=== PATIENT | female | born 1975 | race Caucasian/White ===

== ENCOUNTER 2017-09-14 03:31 | Inpatient (IN) | payer OTHER ==
[~2017-09-14] VITALS: Ht 152.4 cm; Wt 88.2 kg
[2017-09-14] VITALS (8 sets, daily range): BP systolic 104–131; BP diastolic 54–90; PULSE 67–100; RESP 16–24; TEMP 97.7–99; O2SAT 95–100
[2017-09-14] MEDS ORDERED: SODIUM CHLORIDE 0.9% FLUSH 10 ML FLUSH IVF PRN (04:00)
[2017-09-14] MEDS ORDERED: HYDROmorphone HCL PF 0.5 MG/0.5 ML SYRINGE IV PUSH ONE ×2 (04:00→05:30)
[2017-09-14] MEDS ORDERED: DEXAMETHASONE SOD PHOS 4 MG/ML VIAL IV PUSH ONE (04:00)
[2017-09-14] MEDS ORDERED: CLINDAMYCIN INJ 900 MG in SODIUM CHLORIDE 0.9% INJ 100 ML IV ONE (04:00)
[2017-09-14] MEDS ORDERED: ONDANSETRON HCL 4 MG/2 ML VIAL IV PUSH ONE (04:00)
--- NOTE | 2017-09-14 04:04 | PD ---
HPI Chief Complaint: Oral / Dental Pain or Problem Time Seen by Provider: 03:45 Travel History International Travel<30 days: No Contact w/Intl Traveler<30days: No Traveled to known affect area: No History of Present Illness HPI Patient is a 42-year-old female presenting to the emergency department for evaluation of facial swelling and dental pain. Patient states the pain and swelling started Monday morning getting progressively more painful and swollen. Patient reports pain is a 9 out of 10, she took oxycodone which she has prescribed to her for chronic back pain and this did not relieve her symptoms. She denies any fever, chills, nausea, vomiting, headache. Patient states the pain is in her left lower jaw and radiates to her left neck and her neck feels more swollen now. She denies any dysphagia or shortness of breath. PFSH Past Medical History Diabetes: Yes Patient Takes Glucophage: Yes Diminished Hearing: No Immunizations Current: Yes ?: Not Past Surgical History Other Surgery: Yes (CYST REMOVED RIGHT NECK, SKIN CA REMOVED) Social History Alcohol Use: No Tobacco Use: Yes (-11/28 PPD) Substance Use: No Allergies-Medications (Allergen,Severity, Reaction): Coded Allergies: diphenhydramine (Verified Allergy, Mild, Swelling, 09/14/17) morphine (Verified Allergy, Mild, Itching, 09/14/17) Reported Meds & Prescriptions Reported Meds & Active Scripts Active Reported Hydrochlorothiazide 12.5 Mg Cap 12.5 Mg PO DAILY Gabapentin 800 Mg Tab 800 Mg PO TID Review of Systems Except as stated in HPI: all other systems reviewed are Neg HENT: Positive: Neck Pain, Masses, Dental Difficulties Respiratory: No: Shortness of Breath Physical Exam Narrative GENERAL: Well-developed, well-nourished, alert female. Appears uncomfortable, in no acute distress. SKIN: Warm and dry. Golf ball size area of edema to the left lower jaw extending to the submandibular space on the left side, the left cheek is mildly edematous. Mild erythema noted. MOUTH: Mucous membranes moist, no lesions, tongue and gums appear normal. No obvious abscess noted. HEAD: Normocephalic. EYES: No scleral icterus. No injection or drainage. NECK: Supple, trachea midline. No JVD or lymphadenopathy. CARDIOVASCULAR: Regular rate and rhythm without murmurs, gallops, or rubs. RESPIRATORY: Breath sounds equal bilaterally. No accessory muscle use. GASTROINTESTINAL: Abdomen soft, non-tender, nondistended. MUSCULOSKELETAL: No cyanosis, or edema. BACK: Nontender without obvious deformity. No CVA tenderness. Data Data Last Documented VS Vital Signs Date Time Temp Pulse Resp B/P (MAP) Pulse Ox O2 Delivery O2 Flow Rate FiO2 09/14/17 03:33 97.7 100 16 121/90 (100) 100 Room Air Orders Orders Complete Blood Count With Diff (09/14/17 03:48) Iv Access Insert/Monitor (09/14/17 03:48) Dexamethasone Inj (Decadron Inj) (09/14/17 04:00) Clindamycin Inj (Cleocin Inj) (09/14/17 04:00) Sodium Chloride 0.9% Flush (Ns Flush) (09/14/17 04:00) Ed Urine Pregnancytest Poc (09/14/17 03:48) Basic Metabolic Panel (Bmp) (09/14/17 03:48) Hydromorphone Pf Inj (Dilaudid Pf Inj) (09/14/17 04:00) Ondansetron Inj (Zofran Inj) (09/14/17 04:00) Ct Soft Tiss Neck W Iv Cont (09/14/17 04:01) Iohexol 350 Inj (Omnipaque 350 Inj) (09/14/17 05:10) Hydromorphone Pf Inj (Dilaudid Pf Inj) (09/14/17 05:30) Admit Order (Ed Use Only) (09/14/17 05:54) Vital Signs (Adult) Q4H (09/14/17 05:54) Diet 1999 Ada Cons Carb (09/14/17 Breakfast) Activity Oob With Assistance (09/14/17 05:54) Labs Laboratory Tests Test 09/14/17 03:55 White Blood Count 21.8 TH/MM3 Red Blood Count 5.38 MIL/MM3 Hemoglobin 16.1 GM/DL Hematocrit 46.0 % Mean Corpuscular Volume 85.4 FL Mean Corpuscular Hemoglobin 29.9 PG Mean Corpuscular Hemoglobin Concent 35.0 % Red Cell Distribution Width 13.9 % Platelet Count 258 TH/MM3 Mean Platelet Volume 9.3 FL Neutrophils (%) (Auto) 79.3 % Lymphocytes (%) (Auto) 15.0 % Monocytes (%) (Auto) 4.4 % Eosinophils (%) (Auto) 0.6 % Basophils (%) (Auto) 0.7 % Neutrophils # (Auto) 17.3 TH/MM3 Lymphocytes # (Auto) 3.3 TH/MM3 Monocytes # (Auto) 1.0 TH/MM3 Eosinophils # (Auto) 0.1 TH/MM3 Basophils # (Auto) 0.2 TH/MM3 CBC Comment DIFF FINAL Differential Comment Blood Urea Nitrogen 15 MG/DL Creatinine 0.66 MG/DL Random Glucose 220 MG/DL Calcium Level 8.7 MG/DL Sodium Level 135 MEQ/L Potassium Level 4.0 MEQ/L Chloride Level 104 MEQ/L Carbon Dioxide Level 23.4 MEQ/L Anion Gap 8 MEQ/L Estimat Glomerular Filtration Rate 98 ML/MIN MDM Medical Decision Making Medical Screen Exam Complete: Yes Emergency Medical Condition: Yes Interpretation(s) Last Impressions Neck CT 09/14/17 0401 Signed Impressions: Service Date/Time: , September 14, 2017 04:57 - CONCLUSION: 1. Cellulitis without abscess involving the buccal surface of the left mandible Eduin Cabrera MD Laboratory Tests Test 09/14/17 03:55 White Blood Count 21.8 TH/MM3 Red Blood Count 5.38 MIL/MM3 Hemoglobin 16.1 GM/DL Hematocrit 46.0 % Mean Corpuscular Volume 85.4 FL Mean Corpuscular Hemoglobin 29.9 PG Mean Corpuscular Hemoglobin Concent 35.0 % Red Cell Distribution Width 13.9 % Platelet Count 258 TH/MM3 Mean Platelet Volume 9.3 FL Neutrophils (%) (Auto) 79.3 % Lymphocytes (%) (Auto) 15.0 % Monocytes (%) (Auto) 4.4 % Eosinophils (%) (Auto) 0.6 % Basophils (%) (Auto) 0.7 % Neutrophils # (Auto) 17.3 TH/MM3 Lymphocytes # (Auto) 3.3 TH/MM3 Monocytes # (Auto) 1.0 TH/MM3 Eosinophils # (Auto) 0.1 TH/MM3 Basophils # (Auto) 0.2 TH/MM3 CBC Comment DIFF FINAL Differential Comment Blood Urea Nitrogen 15 MG/DL Creatinine 0.66 MG/DL Random Glucose 220 MG/DL Calcium Level 8.7 MG/DL Sodium Level 135 MEQ/L Potassium Level 4.0 MEQ/L Chloride Level 104 MEQ/L Carbon Dioxide Level 23.4 MEQ/L Anion Gap 8 MEQ/L Estimat Glomerular Filtration Rate 98 ML/MIN Vital Signs Date Time Temp Pulse Resp B/P (MAP) Pulse Ox O2 Delivery O2 Flow Rate FiO2 09/14/17 03:33 97.7 100 16 121/90 (100) 100 Room Air Differential Diagnosis Abscess versus cellulitis versus osteomyelitis versus other Narrative Course Patient presented to the ER for evaluation of facial swelling. Patient's vital signs are stable, labs and imaging ordered and pending. Pain medication ordered as well as IV antibiotics and dexamethasone. IV access established. CBC with a white count of 21.8 with left shift. Chemistry is unremarkable. CT of the neck was read by the radiologist shows cellulitis without abscess involving the buccal surface of the left mandible. Findings and patient presentation discussed with my attending physician. Patient will be admitted for IV antibiotic therapy with the diagnosis of cellulitis, patient meets sepsis criteria. [facility] paged for admission. Discussed with Dr. Galvez, admits orders placed. Additionally lab and imaging findings were discussed with patient. Sepsis Criteria SIRS Criteria (2 or more): Heart rate over 90, WBC > 69411, < 4000 or > 10% bands Sepsis Criteria (SIRS+source): Infect source susp/known Diagnosis Primary Impression: Cellulitis of cheek Admitting Information Admitting Physician Requests: Admit Condition: Stable Tianna Peterson Sep 14, 2017 04:04
[2017-09-14 04:08] LABS: AUTOMATED NEUTROPHIL # 17.3 TH/MM3 (1.8-7.7); BASOPHIL # 0.2 TH/MM3 (0-0.2); BASOPHIL % 0.7 % (0.0-2.0); EOSINOPHIL # 0.1 TH/MM3 (0-0.4); EOSINOPHIL % 0.6 % (0.0-4.0); HEMO FLAGS DIFF FINAL; LYMPHOCYTE # 3.3 TH/MM3 (1.0-4.8); MEAN CELL VOLUME 85.4 FL (80.0-100.0); MEAN CORPUSCULAR HEMOGLOBIN 29.9 PG (27.0-34.0); MONO % 4.4 % (0.0-8.0); NEUT % 79.3 % (16.0-70.0); PLATELET COUNT 258 TH/MM3 (150-450); RED BLOOD COUNT 5.38 MIL/MM3 (4.00-5.30); RED CELL DISTRIBUTION WIDTH 13.9 % (11.6-17.2); WHITE BLOOD COUNT 21.8 TH/MM3 (4.0-11.0)
[2017-09-14] MEDS ORDERED: GABA800T PO (04:08)
[2017-09-14] MEDS ORDERED: LISI2.5T3 PO (04:08)
[2017-09-14] MEDS ORDERED: METF1000 PO (04:08)
[2017-09-14] MEDS ORDERED: LANTUS2P SQ (04:08)
[2017-09-14] MEDS ORDERED: HYDR12.57 PO (04:08)
[2017-09-14] MEDS ORDERED: SIMV20TA PO (04:08)
[2017-09-14 04:39] LABS: BICARBONATE 23.4 MEQ/L (21.0-32.0)
[2017-09-14] MEDS ORDERED: IOHEXOL 350 MG/ML 10 ML VIAL (for RAD DIAG) IVCONTRAST ONE (05:10)
--- NOTE | 2017-09-14 05:22 | RADRPT ---
EXAM DATE/TIME: 09/14/2017 04:57 [facility] COMPARISON: No previous studies available for comparison. INDICATIONS : Left side facial swelling. Possible dental abscess. IV CONTRAST: 80 cc Omnipaque 350 (iohexol) IV RADIATION DOSE: 22.15 CTDIvol (mGy) MEDICAL HISTORY : None SURGICAL HISTORY : None. ENCOUNTER: Initial ACUITY: 2 days PAIN SCALE: 10/10 LOCATION: Left facial TECHNIQUE: Volumetric scanning of the neck was performed. Using automated exposure control and adjustment of th e mA and/or kV according to patient size, radiation dose was kept as low as reasonably achievable to obtain optimal diagnostic quality images. DICOM format image data is available electronically for r eview and comparison. FINDINGS: Examination of the skull base demonstrates no evidence of deep infiltrating mucosal lesion. The oroph arynx, hypopharynx, glottic and subglottic airway demonstrate no abnormality. There is extensive soft tissue swelling along the buccal surface of the mandible without evidence of abscess. There is no monique ny destruction or periosteal reaction to suggest osteomyelitis. There is reactive adenopathy involvin g the submandibular nodes bilaterally. The thyroid gland demonstrates no abnormality. The lung apices demonstrate no abnormality. There is lucency surrounding the molar is on the left characteristic of dental caries CONCLUSION: 1. Cellulitis without abscess involving the buccal surface of the left mandible Eduin Cabrera MD on September 14, 2017 at 5:17 Board Certified Radiologist. This report was verified electronically.
[2017-09-14] MEDS ORDERED: NALOXONE HCL 0.4 MG/ML AMP IV PUSH PRN (06:00)
[2017-09-14] MEDS ORDERED: SODIUM CHLORIDE 0.9% FLUSH 10 ML FLUSH IV FLUSH PRN (06:00)
[2017-09-14] MEDS ORDERED: IBUP800T23 PO (09:56)
[2017-09-14] MEDS ORDERED: DEXTROSE 50% IN WATER 50 ML VIAL(D50) IV PUSH PRN (10:00)
[2017-09-14] MEDS ORDERED: DEXAMETHASONE SOD PHOS 4 MG/ML VIAL IV PUSH SCH (10:00)
[2017-09-14] MEDS ORDERED: GLUCAGON 1 MG/ML VIAL OTHER PRN (10:00)
--- NOTE | 2017-09-14 10:37 | HHI.HP ---
HPI Service [facility] Primary Care Physician [facility] Admission Diagnosis facial cellulitis Diagnoses: Chief Complaint: Facial pain and swelling Travel History International Travel<30 Days: No Contact w/Intl Traveler <30 Da: No Traveled to Known Affected Are: No Sepsis Criteria SIRS Criteria (2 or more): Heart rate over 90, RR > 20 or PaCO2 < 32, WBC > 42930, < 4000 or > 10% bands Sepsis Criteria (SIRS+source): Infect source susp/known Criteria Outcome: Meets sepsis criteria History of Present Illness Written by Sunny Paris, acting as scribe for Dr. Davenport on 09/14/17 at 10:37. 42-year-old female with past medical history of HTN, HLD, DM who presented for left facial pain and swelling. Patient states yesterday morning she had pain and swelling below her left jaw. She describes the pain as constant, throbbing secondary to all the swelling. She denies any fever, chills, nausea, vomiting, lightheadedness, dizziness, dysuria, constipation. She doesn't feel she is having any tooth pain. She received IV antibiotics and steroids in the ED, denies much improvement at this time. Review of Systems Except as stated in HPI: all other systems reviewed are Neg Past Family Social History Past Medical History Hypertension Hyperlipidemia Diabetes mellitus with neuropathy Past Surgical History The meniscus repair bilateral Mohs surgery for skin cancer Right brachial cleft cyst removal Reported Medications Reported Meds & Active Scripts Active Reported Ibuprofen 800 Mg Tab 800 Mg PO TID Lantus Inj (Insulin Glargine) 1,000 Unit/10 Ml Vial 10 Units SQ AC BREAKFAST Metformin (Metformin HCl) 1,000 Mg Tab 1,000 Mg PO BIDPC Simvastatin 20 Mg Tab 20 Mg PO HS Lisinopril 2.5 Mg Tab 10 Mg PO DAILY Hydrochlorothiazide 12.5 Mg Cap 12.5 Mg PO DAILY Gabapentin 800 Mg Tab 800 Mg PO TID Allergies: Coded Allergies: diphenhydramine (Verified Allergy, Mild, Swelling, 09/14/17) morphine (Verified Allergy, Mild, Itching, 09/14/17) Active Ordered Medications Current Medications Medications (Trade) Dose Ordered Sig/Landry Route Start Time Stop Time Status Last Admin (NS Flush) 2 ml UNSCH PRN IV FLUSH 09/14/17 06:00 (NS Flush) 2 ml BID IV FLUSH 09/14/17 09:00 09/14/17 10:43 (Narcan Inj) 0.4 mg UNSCH PRN IV PUSH 09/14/17 06:00 Clindamycin Phosphate 900 mg/ Sodium Chloride 106 ml @ 212 mls/hr Q6H IV 09/14/17 10:00 09/14/17 10:42 (Lactinex) 1 tab TID PO 09/14/17 09:00 09/14/17 10:42 (D50w (Vial) Inj) 50 ml UNSCH PRN IV PUSH 09/14/17 10:00 (Glucagon Inj) 1 mg UNSCH PRN OTHER 09/14/17 10:00 (NovoLOG SUPPLEMENTAL SCALE) 1 ACHS SLIDING SCALE SQ 09/14/17 12:00 (Neurontin) 800 mg TID PO 09/14/17 13:00 UNV (Lantus Inj) 10 units AC BREAKFAST SQ 09/14/17 11:00 UNV Non-Formulary Medication 10 mg DAILY PO 09/14/17 11:00 UNV Non-Formulary Medication 20 mg HS PO 09/14/17 21:00 UNV (Toradol Inj) 15 mg Q6HR IV PUSH 09/14/17 12:00 UNV (Protonix) 40 mg DAILY PO 09/14/17 11:00 UNV Family History Father at 51 of colon cancer, had diabetes Mother has diabetes and high blood pressure Social History Smokes 1.5 packs per day since age 16 Denies any alcohol use Marijuana use Physical Exam Vital Signs Vital Signs Date Time Temp Pulse Resp B/P (MAP) Pulse Ox O2 Delivery O2 Flow Rate FiO2 09/14/17 09:25 98.4 79 22 131/69 (89) 95 09/14/17 09:14 09/14/17 06:12 75 16 109/65 (80) 95 Room Air 09/14/17 03:33 97.7 100 16 121/90 (100) 100 Room Air Physical Exam GENERAL: Well-developed well-nourished. In no acute distress. SKIN: Warm and dry. Jaw infection as below. HEENT: Normocephalic. Pupils equal and round. Left lower jaw with swelling, induration, redness, tenderness to palpation. Poor dentition. CARDIOVASCULAR: Regular rate and rhythm. No murmur appreciated. RESPIRATORY: No accessory muscle use. Clear to auscultation. Breath sounds equal bilaterally. GASTROINTESTINAL: Abdomen soft, non-tender, nondistended. Bowel sounds x4. MUSCULOSKELETAL: No obvious deformities. No clubbing or cyanosis. No edema. NEUROLOGICAL: Awake and alert. No focal neurological deficits. Moves upper and lower extremities spontaneously. Normal speech. PSYCHIATRIC: Appropriate mood and affect; insight and judgment normal. Laboratory Laboratory Tests Test 09/14/17 03:55 White Blood Count 21.8 Red Blood Count 5.38 Hemoglobin 16.1 Hematocrit 46.0 Mean Corpuscular Volume 85.4 Mean Corpuscular Hemoglobin 29.9 Mean Corpuscular Hemoglobin Concent 35.0 Red Cell Distribution Width 13.9 Platelet Count 258 Mean Platelet Volume 9.3 Neutrophils (%) (Auto) 79.3 Lymphocytes (%) (Auto) 15.0 Monocytes (%) (Auto) 4.4 Eosinophils (%) (Auto) 0.6 Basophils (%) (Auto) 0.7 Neutrophils # (Auto) 17.3 Lymphocytes # (Auto) 3.3 Monocytes # (Auto) 1.0 Eosinophils # (Auto) 0.1 Basophils # (Auto) 0.2 CBC Comment DIFF FINAL Differential Comment Blood Urea Nitrogen 15 Creatinine 0.66 Random Glucose 220 Calcium Level 8.7 Sodium Level 135 Potassium Level 4.0 Chloride Level 104 Carbon Dioxide Level 23.4 Anion Gap 8 Estimat Glomerular Filtration Rate 98 Result Diagram: 09/14/17 0355 09/14/17 0355 Imaging Last Impressions Neck CT 09/14/17 040 Signed Impressions: Service Date/Time: August 04:57 - CONCLUSION: 1. Cellulitis without abscess involving the buccal surface of the left mandible MD Henrique Luis VTE Risk Assessment Henrique VTE Risk Assessment: No/Low Risk (score <= 1) Caprini Risk Assessment Model Point Value = 1 Point Value = 2 Point Value = 3 Point Value = 5 Age 41-60 Minor surgery BMI > 25 kg/m2 Swollen legs Varicose veins or History of unexplained or recurrent spontaneous Oral contraceptives or hormone replacement Sepsis (< 1 month) Serious lung disease, including pneumonia (< 1 month) Abnormal pulmonary function Acute myocardial infarction Congestive heart failure (< 1 month) History of inflammatory bowel disease Medical patient at bed rest Age 61-74 Arthroscopic surgery Major open surgery (> 45 min) Laparoscopic surgery (> 45 min) Malignancy Confined to bed (> 72 hours) Immobilizing plaster cast Central venous access Age >= 75 History of VTE Family history of VTE Factor V Leiden Prothrombin [id number] Lupus anticoagulant Anticardiolipin antibodies Elevated serum homocysteine Heparin-induced thrombocytopenia Other congenital or acquired thrombophilia Stroke (< 1 month) Elective arthroplasty Hip, pelvis, or leg fracture Acute spinal cord injury (< 1 month) Prophylaxis Regimen Total Risk Factor Score Risk Level Prophylaxis Regimen 0-1 Low Early ambulation 2 Moderate Order ONE of the following: *Sequential Compression Device (SCD) *Heparin 5000 units SQ BID 3-4 Higher Order ONE of the following medications: *Heparin 5000 units SQ TID *Enoxaparin/Lovenox 40 mg SQ daily (WT < 150 kg, CrCl > 30 mL/min) *Enoxaparin/Lovenox 30 mg SQ daily (WT < 150 kg, CrCl > 10-29 mL/min) *Enoxaparin/Lovenox 30 mg SQ BID (WT < 150 kg, CrCl > 30 mL/min) AND/OR *Sequential Compression Device (SCD) 5 or more Highest Order ONE of the following medications: *Heparin 5000 units SQ TID (Preferred with Epidurals) *Enoxaparin/Lovenox 40 mg SQ daily (WT < 150 kg, CrCl > 30 mL/min) *Enoxaparin/Lovenox 30 mg SQ daily (WT < 150 kg, CrCl > 10-29 mL/min) *Enoxaparin/Lovenox 30 mg SQ BID (WT < 150 kg, CrCl > 30 mL/min) AND *Sequential Compression Device (SCD) Assessment and Plan Assessment and Plan 42-year-old female with past medical history of HTN, HLD, DM who presented for left facial pain and swelling Left facial cellulitis with sepsis: WBC 21.8, tachycardia, tachypnea. Personally interviewed neck CT which shows cellulitis without abscess along the buccal surface of the left mandible. -Continue IV antibiotics with clindamycin. Lactinex with clindamycin. -Check lactic acid and blood cultures -Received Decadron in the ED. Continue on IV Toradol for pain and swelling with PPI -IVF Diabetes mellitus: With hyperglycemia secondary to steroids and infection. -Continue home Lantus -Hold home metformin -Monitor Accu-Cheks and cover with sliding scale if needed -Continue gabapentin for neuropathy Hypertension: Continue home lisinopril. Hold home HCTZ for now. Monitor. Hyperlipidemia: Chronic, stable. Continue home statin. DVT prophylaxis: SCDs Discussed Condition With Patient Attending Statement This note was transcribed by rachel Paris. I, Dr. Freddy Davenport personally performed the history, physical exam, and medical decision making; and confirmed the accuracy of the information in the transcribed note. Authenticated by Dr. Freddy Davenport on 09/14/17 at 15:33. Sunyn Paris Sep 14, 2017 10:37 Freddy Davenport MD Sep 14, 2017 15:33
[2017-09-14] MEDS: LACTOBACILLUS ACIDOPHILUS TAB PO SCH ×3 (10:42→17:48)
[2017-09-14] MEDS: CLINDAMYCIN INJ 900 MG in SODIUM CHLORIDE 0.9% INJ 100 ML IV SCH ×3 (10:42→21:30)
[2017-09-14] MEDS: SODIUM CHLORIDE 0.9% FLUSH 10 ML FLUSH IV FLUSH SCH ×2 (10:43→21:30)
[2017-09-14] MEDS ORDERED: INSULIN DETEMIR 100 UNITS/ML VIAL SQ SCH (12:00)
[2017-09-14] MEDS: LISINOPRIL 10 MG TAB PO SCH (12:00)
[2017-09-14] MEDS: KETOROLAC TROMETHAMINE 30 MG/ML (IVP) VIAL IV PUSH SCH ×3 (13:06→23:49)
[2017-09-14] MEDS: GABAPENTIN 400 MG CAP PO SCH ×2 (13:06→17:48)
[2017-09-14] MEDS: SODIUM CHLOR 0.9% 1000 ML INJ 1,000 ML IV SCH ×2 (13:07→21:30)
[2017-09-14] MEDS: INSULIN ASPART SUPPLEMENTAL SCALE SQ SCH ×3 (13:08→21:30)
[2017-09-14] MEDS: PANTOPRAZOLE SOD 40 MG DELAYED RELEASE TAB PO SCH (13:09)
[2017-09-14 17:04] LABS: HEMOGLOBIN A1a 1.1 %; HEMOGLOBIN A1b 2.9 %; HEMOGLOBIN Ao 77.4 %; HEMOGLOBIN LA1C 3.9 %; HEMOGLOBIN P3 4.9 %
[2017-09-14] MEDS ORDERED: PRAVASTATIN SOD 40 MG TAB PO SCH (21:00)
[2017-09-14] MEDS: INSULIN DETEMIR 100 UNITS/ML VIAL SQ SCH (21:29)
[2017-09-15] VITALS: BP 101/63; PULSE 63; RESP 16; TEMP 97.9; O2SAT 98
[2017-09-15] MEDS: CLINDAMYCIN INJ 900 MG in SODIUM CHLORIDE 0.9% INJ 100 ML IV SCH ×3 (03:24→16:00)
[2017-09-15 04:00] VITALS: BP 102/64; PULSE 67; RESP 20; TEMP 97.6; O2SAT 94
[2017-09-15] MEDS: KETOROLAC TROMETHAMINE 30 MG/ML (IVP) VIAL IV PUSH SCH ×2 (05:30→13:12)
[2017-09-15 08:00] VITALS: BP 125/75; PULSE 64; RESP 18; TEMP 97.8; O2SAT 98
[2017-09-15] MEDS: SODIUM CHLORIDE 0.9% FLUSH 10 ML FLUSH IV FLUSH SCH (09:00)
[2017-09-15] MEDS: LISINOPRIL 10 MG TAB PO SCH ×3 (09:00→09:17)
[2017-09-15] MEDS: SODIUM CHLOR 0.9% 1000 ML INJ 1,000 ML IV SCH ×2 (09:08→17:15)
[2017-09-15] MEDS: INSULIN ASPART SUPPLEMENTAL SCALE SQ SCH ×3 (09:10→17:00)
[2017-09-15] MEDS: PANTOPRAZOLE SOD 40 MG DELAYED RELEASE TAB PO SCH (09:11)
[2017-09-15] MEDS: GABAPENTIN 400 MG CAP PO SCH ×2 (09:11→13:13)
[2017-09-15] MEDS: LACTOBACILLUS ACIDOPHILUS TAB PO SCH ×2 (09:11→13:13)
[2017-09-15] MEDS: INSULIN DETEMIR 100 UNITS/ML VIAL SQ SCH (09:12)
[2017-09-15 09:56] LABS: AUTOMATED NEUTROPHIL # 10.4 TH/MM3 (1.8-7.7); BASOPHIL # 0.1 TH/MM3 (0-0.2); BASOPHIL % 0.6 % (0.0-2.0); EOSINOPHIL # 0.1 TH/MM3 (0-0.4); EOSINOPHIL % 0.6 % (0.0-4.0); HEMATOCRIT 39.2 % (35.0-46.0); HEMO FLAGS DIFF FINAL; MEAN CELL VOLUME 86.5 FL (80.0-100.0); MEAN CORPUSCULAR HEMOGLOBIN 29.6 PG (27.0-34.0); MEAN CORPUSCULAR HGB CONC 34.2 % (32.0-36.0); MONO % 5.3 % (0.0-8.0); NEUT % 72.5 % (16.0-70.0); PLATELET COUNT 228 TH/MM3 (150-450); RED BLOOD COUNT 4.54 MIL/MM3 (4.00-5.30); WHITE BLOOD COUNT 14.4 TH/MM3 (4.0-11.0)
[2017-09-15 10:20] LABS: BICARBONATE 24.1 MEQ/L (21.0-32.0); POTASSIUM 3.5 MEQ/L (3.5-5.1)
[2017-09-15 12:00] VITALS: BP 110/66; PULSE 65; RESP 18; TEMP 97.8; O2SAT 99
[2017-09-15] MEDS ORDERED: CLIN1CAP6 PO (15:23)
[2017-09-15] MEDS ORDERED: LACTCHW3 CHEW (15:23)
--- NOTE | 2017-09-15 15:25 | HHI.PR ---
Subjective Remarks Patient stated her Left facial swelling improved since yesterday She also go home no fever or chills Objective Vitals Vital Signs Date Time Temp Pulse Resp B/P (MAP) Pulse Ox O2 Delivery O2 Flow Rate FiO2 09/15/17 12:00 97.8 65 18 110/66 (81) 99 09/15/17 09:08 18 09/15/17 08:00 97.8 64 18 125/75 (92) 98 09/15/17 04:00 97.6 67 20 102/64 (77) 94 09/15/17 00:00 97.9 63 16 101/63 (76) 98 09/14/17 20:00 68 09/14/17 20:00 97.8 67 16 104/67 (79) 95 09/14/17 20:00 Room Air 09/14/17 19:39 98.1 70 16 119/69 (86) 97 09/14/17 15:38 99.0 84 20 118/54 (75) 97 I/O 09/14/17 09/14/17 09/14/17 09/15/17 09/15/17 09/15/17 07:00 15:00 23:00 07:00 15:00 23:00 Intake Total 106 ml 106 ml 2550 ml 460 ml Output Total 950 ml 100 ml Balance 106 ml 106 ml 1600 ml 360 ml Intake Oral 750 ml 360 ml IV Total 106 ml 106 ml 1800 ml 100 ml Output Urine Total 950 ml 100 ml # Voids 1 # Bowel Movements 1 Result Diagram: 09/15/17 0820 09/15/1720 Objective Remarks GENERAL: This is a well-nourished, well-developed patient, in no apparent distress. SKIN: No rashes, warm and dry , left facial mandibular swelling HEAD: Atraumatic. Normocephalic. EYES: Pupils equal round and reactive. Extraocular motions intact. No scleral icterus. ENT: Nose without bleeding, or drainage, Airway patent. NECK: Trachea midline. Supple CARDIOVASCULAR: Regular rate and rhythm without murmurs, gallops, or rubs. RESPIRATORY: Fair air entry bilaterally. No wheezes, rales, or rhonchi. GASTROINTESTINAL: Abdomen soft, non-tender, nondistended. Positive bowel sounds MUSCULOSKELETAL: Extremities without clubbing, cyanosis, or edema. Pedal pulses appreciated NEUROLOGICAL: Awake and alert. Moves all extremity. Normal speech.no focal neurological deficit A/P Assessment and Plan 42-year-old female with past medical history of HTN, HLD, DM who presented for left facial pain and swelling Left facial cellulitis with sepsis: WBC 21.8 dropped 14 K, tachycardia, tachypnea. Improved neck CT which shows cellulitis without abscess along the buccal surface of the left mandible. -Which clindamycin iv 2 by mouth. Lactinex with clindamycin. -Thick acid normal limits -Received Decadron in the ED. Continue on IV Toradol for pain and swelling with PPI -IVF Diabetes mellitus: With hyperglycemia secondary to steroids and infection. -Continue home Lantus -Hold home metformin -Monitor Accu-Cheks and cover with sliding scale if needed -Continue gabapentin for neuropathy Hypertension: Continue home lisinopril. Hold home HCTZ for now. Monitor. Hyperlipidemia: Chronic, stable. Continue home statin. DVT prophylaxis: SCDs Discharge Planning Discharge patient to home Condition on discharge: Improved Healthy heart diabetic ADA 1800 as tolerated Ad Christel activity Rx written: Clindamycin by mouth 300 every 6 hours for 10 days Follow-up with primary care physician in one week Fredis Cortés MD Sep 15, 2017 15:25
[2017-09-15 15:31] LABS: HEMOGLOBIN A1a 1.3 %; HEMOGLOBIN A1b 2.7 %; HEMOGLOBIN Ao 78.9 %; HEMOGLOBIN LA1C 2.8 %; HEMOGLOBIN P3 4.7 %
[2017-09-15 16:33] VITALS: PULSE 65
[2017-09-15 16:34] VITALS: RESP 20
== END 2017-09-15 18:03 | disposition home or self-care (01) | DRG 872 ==
LOC: NEPD 03:31 → NEDA 05:56 → INTOOBSV 05:56 → NEPHCDU 09:12 → OBSVTOIN 10:50 → N04A 20:06
PROVIDERS: ADMIT Hospitalist; ATTEND Hospitalist
DX: A41.9 Sepsis, unspecified organism (principal); E11.40 Type 2 diabetes mellitus with diabetic neuropathy, unspecified; L03.211 Cellulitis of face; I10 Essential (primary) hypertension; F17.210 Nicotine dependence, cigarettes, uncomplicated; G89.29 Other chronic pain; M54.9 Dorsalgia, unspecified; E78.5 Hyperlipidemia, unspecified; E11.65 Type 2 diabetes mellitus with hyperglycemia; T38.0X5A Adverse effect of glucocorticoids and synthetic analogues, initial encounter; Z79.4 Long term (current) use of insulin; Z85.828 Personal history of other malignant neoplasm of skin
CPT/HCPCS: 70491; 80048; 82948; 83036; 83605; 84703; 85025; 87040; J1170; J1100; J1815; J1885; J2405; J7030; Q9967